=== PATIENT | female | born 1990 | race Caucasian/White ===

== ENCOUNTER 2016-08-09 11:26 | Emergency (ER) | payer MEDICAID ==
[2016-08-09 12:18] LABS: BILIRUBIN,URINE NEGATIVE (NEGATIVE); PH,URINE 5.5 PH (5.0-7.5)
[2016-08-09 12:22] LABS: UA CHARGE (STRIP ONLY) YES; UR CULTURE IF IND NOT INDICATED
[2016-08-09] MEDS ORDERED: HYDROmorphone 1 MG/ML SYRINGE IVP STA (14:13)
[2016-08-09] MEDS ORDERED: ONDANSETRON 4 MG/2 ML VIAL IVP STA (14:13)
[2016-08-09] MEDS ORDERED: HYDROmorphone 1 MG/ML SYRINGE ONE (14:15)
[2016-08-09] MEDS ORDERED: ONDANSETRON 4 MG/2 ML VIAL ONE (14:15)
--- NOTE | 2016-08-09 14:17 | ED Physician Documentation ---
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 For 2 days she has had sharp constant lower abdominal pain with nausea and some diarrhea but no vomiting. No fevers.) Review of Systems Constitutional: denies: Fever, Chills Cardiac: denies: Chest pain / pressure, Palpitations Respiratory: denies: Dyspnea, Cough : denies: Dysuria, Frequency PD PAST MEDICAL HISTORY - Present Medications Home Medications: Ambulatory Orders Medication Instructions Recorded Confirmed Albuterol Sulf [Ventolin Hfa] 60 puffs INH 08/09/16 Alprazolam [Xanax] 2 mg PO BID 08/09/16 08/09/16 Carisoprodol [Soma] 350 mg PO TID 08/09/16 08/09/16 Cbd Capsules 08/09/16 Esomeprazole Magnesium [Nexium] 40 mg PO BID 08/09/16 08/09/16 HYDROcod/ACETAM 5/325 [[place] 5/325] 1 - 2 ea PO Q6H PRN #15 tablet 08/09/16 Norethindrone [Radha-Be] 0.35 mg PO 08/09/16 Phenazopyridine [Pyridium] 200 mg PO TID 08/09/16 08/09/16 Promethazine [Phenergan] 25 - 50 mg PO Q6H PRN #15 tab 08/09/16 - Allergies Allergies/Adverse Reactions: Allergies Allergy/AdvReac Type Severity Reaction Status Date / Time iodine Allergy Unknown Verified 08/09/16 12:00 Latex, Natural Rubber Allergy Unknown Verified 08/09/16 12:00 shellfish derived Allergy Unknown Verified 08/09/16 12:00 PD ED PE NORMAL - Vitals Vital signs reviewed: Yes - General General: Alert and oriented X 3, No acute distress - Cardiac Cardiac: RRR, No murmur - Respiratory Respiratory: No respiratory distress, Clear bilaterally - Abdomen Abdomen: Normal bowel sounds, Soft, Other (mild low abd TTP) - Neuro Neuro: Alert and oriented X 3, Normal speech - Psych Psych: Normal mood, Normal affect Results - Vitals Vitals: Vital Signs - 24 hr 08/09/16 08/09/16 11:58 14:53 Temperature 36.7 C Heart Rate 86 73 Respiratory 20 16 Rate Blood Pressure 145/91 H 113/62 O2 Saturation 100 97 Oxygen O2 Source Room air - Labs Labs: Laboratory Tests 08/09/16 08/09/16 08/09/16 12:05 14:32 14:32 WBC 5.7 RBC 4.31 Hgb 12.0 Hct 36.9 L MCV 85.7 MCH 27.8 MCHC 32.5 RDW 13.4 Plt Count 236 MPV 8.4 Neut # 3.2 Lymph # 1.9 [place] # 0.5 Eos # 0.1 Baso # 0.0 Absolute Nucleated RBC 0.00 Nucleated RBCs 0.0 Sodium 139 Potassium 4.1 Chloride 105 Carbon Dioxide 27 Anion Gap 7.0 BUN 10 Creatinine 0.5 Estimated GFR (MDRD) 148 Glucose 92 Calcium 9.2 Total Bilirubin 0.7 AST 13 ALT 15 Alkaline Phosphatase 80 Total Protein 8.2 Albumin 4.4 Globulin 3.8 Albumin/Globulin Ratio 1.2 Lipase 28 Urine Color YELLOW Urine Clarity CLEAR Urine pH 5.5 Ur Specific [place] 1.010 Urine Protein NEGATIVE Urine Glucose (UA) NEGATIVE Urine Ketones NEGATIVE Urine Occult Blood NEGATIVE Urine Nitrite NEGATIVE Urine Bilirubin NEGATIVE Urine Urobilinogen 0.2 (NORMAL) Ur Leukocyte Esterase NEGATIVE Ur Microscopic Review NOT INDICATED Urine Culture Comments NOT INDICATED - Rads (name of study) CT A/P Radiology: EMP read contemporaneously (IV only, NAD, 5mm pelvic fluid) PD MEDICAL DECISION MAKING - ED course ED course: 26 yo F with extensive past medical history presents with acute low abd pain. New to the area. NTTP after pain meds. Departure - Departure Disposition: Home, Self Care Clinical Impression: Abdominal pain Condition: Good Record reviewed to determine appropriate education?: Yes Instructions: Abdominal Pain Follow-Up: [facility] [Provider Group] [facility] [Provider Group] Prescriptions: HYDROcod/ACETAM 5/325 [[place] 5/325] 1 - 2 ea PO Q6H PRN #15 tablet PRN Reason: Pain Promethazine [Phenergan] 25 - 50 mg PO Q6H PRN #15 tab PRN Reason: Nausea / Vomiting Comments: RETURN IF WORSE OR NEW SYMPTOMS DEVELOP
[2016-08-09 14:41] LABS: BASOPHILS % (AUTO) 0.6 %; EOSINOPHILS # (AUTO) 0.1 10^3/uL (0.0-0.7); EOSINOPHILS % (AUTO) 1.1 %; HCT - HEMATOCRIT 36.9 % (37.0-47.0); LYMPHOCYTES # (AUTO) 1.9 10^3/uL (1.5-3.5); LYMPHOCYTES % (AUTO) 33.6 %; MEAN CORPUSCULAR HEMOGLOBIN 27.8 pg (27.0-31.0); MEAN CORPUSCULAR HGB CONC 32.5 g/dL (32.0-36.0); MEAN CORPUSCULAR VOLUME 85.7 fL (81.0-99.0); MEAN PLATELET VOLUME 8.4 fL (7.9-10.8); MONOCYTES # (AUTO) 0.5 10^3/uL (0.0-1.0); MONOCYTES % (AUTO) 8.1 %; NEUTROPHILS # (AUTO) 3.2 10^3/uL (1.5-6.6); NEUTROPHILS % (AUTO) 56.6 %; RED BLOOD COUNT 4.31 10^6/uL (4.20-5.40); RED CELL DISTRIBUTION WIDTH 13.4 % (12.0-15.0); UNCORRECTED WHITE BLOOD COUNT 5.7 x10^3/uL; WHITE BLOOD COUNT 5.7 x10^3/uL (4.8-10.8)
[2016-08-09 14:51] LABS: ALBUMIN/GLOBULIN RATIO 1.2 (1.0-2.2); BILIRUBIN,TOTAL 0.7 mg/dL (0.2-1.0); CALCIUM 9.2 mg/dL (8.5-10.3); CREATININE 0.5 mg/dL (0.4-1.0); POTASSIUM 4.1 mmol/L (3.5-5.0); TOTAL PROTEIN 8.2 g/dL (6.7-8.2)
[2016-08-09] MEDS ORDERED: IOPAMIDOL-300 100 ML VIAL IVP ONE (15:19)
--- NOTE | 2016-08-09 16:00 | CT Preliminary Report ---
Exam: CT Abdomen/Pelvis W/ IMPRESSION: 1. No dilated bowel or focal inflammation. 2. Status post hysterectomy with trace (less than 5 cc) free fluid within the deep pelvis without tom ar etiology. 3. Nonobstructing nephrolithiasis. [facility] SITE ID: [id number]
--- NOTE | 2016-08-09 16:04 | CT Report ---
EXAM: CT ABDOMEN AND PELVIS EXAM DATE: 08/09/2016 03:23 PM. CLINICAL HISTORY: Lower abdominal pain COMPARISONS: None. TECHNIQUE: Routine helical CT imaging was performed through the abdomen and pelvis. IV contrast: 100 cc [id number]. Enteric contrast: No. Reconstructions: Coronal and sagittal. In accordance with CT protocol optimization, one or more of the following dose reduction techniques w ere utilized for this exam: automated exposure control, adjustment of mA and/or KV based on patient s ize, or use of iterative reconstructive technique. FINDINGS: Lung Bases: Unremarkable. Liver: Normal. No masses. Gallbladder/Bile Ducts: Not seen suggesting prior cholecystectomy. Spleen: Normal. Pancreas: Normal. Adrenal Glands: Normal. Kidneys: Symmetric enhancement without hydronephrosis. Nonobstructing 2 mm stone on the right. Bilate ral renal hypodense lesions which are indeterminate due to their subcentimeter size although visually these likely represent multiple renal cysts. Peritoneal Cavity/Bowel: The stomach is decompressed. There are no dilated loops of large or small in testine. The patient is status post right lower quadrant surgery with a suture line at the cecal tip. Moderate to large amount of stool within the colon. Pelvic Organs: Bladder is unremarkable. Status post hysterectomy. Trace free fluid within the pelvis. Vasculature: No aneurysms or other significant abnormality. Bones: No significant abnormality. Other: None. IMPRESSION: 1. No dilated bowel or focal inflammation. 2. Status post hysterectomy with trace (less than 5 cc) free fluid within the deep pelvis without tom ar etiology. 3. Nonobstructing nephrolithiasis. [facility] Referring Provider Line: [phone] SITE ID: [id number]
[2016-08-09] MEDS ORDERED: KETOROLAC 60 MG/2 ML VIAL IVP STA (16:16)
[2016-08-09] MEDS ORDERED: KETOROLAC 30 MG/ML VIAL ONE (16:17)
[2016-08-09 16:22] VITALS: BP 122/77
== END 2016-08-09 16:26 | disposition home or self-care (01) ==
LOC: ED 11:26
DX: R10.30 Lower abdominal pain, unspecified (principal); R11.0 Nausea; R19.7 Diarrhea, unspecified; C92.Z1 Other myeloid leukemia, in remission; Z90.49 Acquired absence of other specified parts of digestive tract; Z90.710 Acquired absence of both cervix and uterus
CPT/HCPCS: 36415; 74177; 80053; 81003; 83690; 85025; 96374; 96375; 99283; 99284; J1170; Q9967; 81001; 87086